=== PATIENT | male | born 1955 | race Caucasian/White ===

== ENCOUNTER 2020-03-08 16:20 | Emergency (ER) | payer OTHER ==
[2020-03-08 20:08] LABS: Absolute Lymphocytes (CBC) 1.1 K/uL (0.7-4.9); Basophils % 0.2 % (0-1.3); Lymphocytes % 9.4 % (15.3-44.8); MPV 7.9 fL (7.6-11.3); RBC Red Blood Cell Count 4.27 M/uL (4.33-5.43)
[2020-03-08] MEDS ORDERED: CLINDAMYCIN 900MG/D5W 900 MG/50 ML IVPB IV ONE (20:09)
[2020-03-08] MEDS ORDERED: MORPHINE 4 MG/ML SYR ONE (20:09)
[2020-03-08] MEDS ORDERED: NA CHLORIDE 0.9% 250 ML ONE (20:09)
[2020-03-08] MEDS ORDERED: ONDANSETRON 4 MG/2 ML VIAL ONE (20:09)
[2020-03-08 20:10] LABS: Protime INR 1.21
[2020-03-08 20:22] LABS: Albumin 3.5 g/dL (3.4-5.0); Bilirubin Direct 0.3 mg/dL (0-0.2); Bilirubin Total 1.3 mg/dL (0.2-1.0); Potassium 3.9 mmol/L (3.5-5.1); Protein, Total 8.6 g/dL (6.4-8.2)
--- NOTE | 2020-03-08 20:51 | EDPHYS ---
Physician Documentation [facility] Name: Marcio Moore Age: 64 yrs Sex: Male : 1955 Arrival Date: 03/08/2020 Time: 16:24 Bed 5 Private MD: ED Physician Golden Frey HPI: 03/08 20:09 This 64 yrs old Male presents to ER via Ambulatory with complaints of mh7 Infected Nerve Stimulator. 20:09 the patient presents with a swollen area of the left lower back. Description: mh7 erythematous, swollen, warm. Onset: The symptoms/episode began/occurred 1 week(s) ago. Possible cause(s): unknown. 20:10 Associated signs and symptoms: Pertinent positives: swelling, Pain, Pertinent mh7 negatives: discharge, drainage, foreign body sensation, fever, headache, nausea, shortness of breath, vomiting. Modifying factors: the symptoms are alleviated by nothing, the symptoms are aggravated by nothing. Severity of symptoms: At their worst the symptoms were moderate, earlier today, in the emergency department the symptoms are unchanged. Patient is from [place], [place]. He states that he had a neurostimulator placed 3 months ago in his left lower back area. He reports having pain, redness, and swelling to the area that started 1 week ago. He denies any fever, nausea, vomiting.. Historical: - Allergies: 16:53 No Known Allergies; ss - Home Meds: 20:36 htn and cholesterol medication cannot recall the names [Active]; rr5 20:36 Doxycycline Oral [Active]; Augmentin 875-125 mg Oral tab [Active]; rr5 - PMHx: 20:36 Hypertension; Hyperlipidemia; rr5 - PSHx: 20:36 back surgery; neck surgery; hip surgery; rr5 - Immunization history:: Adult Immunizations up to date. - Social history:: Smoking status: Patient denies any tobacco usage or history of. ROS: 20:10 Constitutional: Negative for fever, chills, and weight loss, Eyes: Negative for injury, mh7 pain, redness, and discharge, ENT: Negative for injury, pain, and discharge, Neck: Negative for injury, pain, and swelling, Cardiovascular: Negative for chest pain, palpitations, and edema, Respiratory: Negative for shortness of breath, cough, wheezing, and pleuritic chest pain, Abdomen/GI: Negative for abdominal pain, nausea, vomiting, diarrhea, and constipation, : Negative for injury, bleeding, discharge, and swelling, MS/Extremity: Negative for injury and deformity, Neuro: Negative for headache, weakness, numbness, tingling, and seizure, Psych: Negative for depression, anxiety, suicide ideation, homicidal ideation, and hallucinations, Allergy/Immunology: Negative for hives, rash, and allergies, Endocrine: Negative for neck swelling, polydipsia, polyuria, polyphagia, and marked weight changes, Hematologic/Lymphatic: Negative for swollen nodes, abnormal bleeding, and unusual bruising. Exam: 20:10 Constitutional: This is a well developed, well nourished patient who is awake, alert, mh7 and in no acute distress. Head/Face: Normocephalic, atraumatic. Eyes: Pupils equal round and reactive to light, extra-ocular motions intact. Lids and lashes normal. Conjunctiva and sclera are non-icteric and not injected. Cornea within normal limits. Periorbital areas with no swelling, redness, or edema. Neck: Trachea midline, no thyromegaly or masses palpated, and no cervical lymphadenopathy. Supple, full range of motion without nuchal rigidity, or vertebral point tenderness. No Meningismus. Chest/axilla: Normal chest wall appearance and motion. Nontender with no deformity. No lesions are appreciated. Cardiovascular: Regular rate and rhythm with a normal S1 and S2. No gallops, murmurs, or rubs. Normal PMI, no JVD. No pulse deficits. Respiratory: Lungs have equal breath sounds bilaterally, clear to auscultation and percussion. No rales, rhonchi or wheezes noted. No increased work of breathing, no retractions or nasal flaring. Abdomen/GI: Soft, non-tender, with normal bowel sounds. No distension or tympany. No guarding or rebound. No evidence of tenderness throughout. 03/09 03:25 MS/ Extremity: Pulses equal, no cyanosis. Neurovascular intact. Full, normal range mh7 of motion. Neuro: Awake and alert, GCS 15, oriented to person, place, time, and situation. Cranial nerves II-XII grossly intact. Motor strength 5/5 in all extremities. Sensory grossly intact. Cerebellar exam normal. Normal gait. Psych: Awake, alert, with orientation to person, place and time. Behavior, mood, and affect are within normal limits. Back: pain, that is moderate, of the left low back, ROM is normal, normal spinal alignment noted, CVA tenderness, is absent, vertebral tenderness, is not appreciated, muscle spasm, is not present, Surgical wound with erythema, tenderness, and swelling. Skin: cellulitis, that is moderate, on the left low back. Vital Signs: 03/08 16:49 BP 135 / 78; Pulse 92; Resp 16; Temp 99.6(O); Pulse Ox 95% on R/A; Weight 97.52 kg; ss Height 5 ft. 9 in. (175.26 cm); Pain 10/10; 20:52 BP 105 / 50; Pulse 75; Resp 19; Pulse Ox 99% ; Pain 5/10; rr5 22:01 BP 110 / 80; Pulse 70; Resp 16; Temp 99.5; Pulse Ox 99% ; rr5 16:49 Body Mass Index 31.75 (97.52 kg, 175.26 cm) ss MDM: 19:46 Patient medically screened. [facility] 20:49 Differential diagnosis: abscess, cellulitis, Infected neurostimulator hardware. Data [facility] reviewed: vital signs, nurses notes, lab test result(s), CBC, electrolytes. Data interpreted: Pulse oximetry: on room air is 95 %. Interpretation: normal. Counseling: I had a detailed discussion with the patient and/or guardian regarding: the historical points, exam findings, and any diagnostic results supporting the discharge/admit diagnosis, lab results, the need to transfer to another facility, for higher level of care, [facility] does not immediately have the required specialist. 03/09 06:52 Response to treatment: the patient's symptoms have markedly improved after treatment. [facility] ED course: Discussed with Neurology at [facility] in [facility] who accepted patient for transfer.. 03/08 19:57 Order name: CBC with Diff; Complete Time: 20:28 [facility] 03/08 19:57 Order name: Basic Metabolic Panel; Complete Time: 20:28 [facility] 03/08 19:57 Order name: Protime (+inr); Complete Time: 20:28 [facility] 03/08 19:57 Order name: Ptt, Activated; Complete Time: 20:28 [facility] 03/08 19:57 Order name: Lactate; Complete Time: 20:28 [facility] 03/08 19:57 Order name: LFT's; Complete Time: 20:28 [facility] 03/08 19:57 Order name: Blood Culture* [facility] 03/08 19:57 Order name: Urine Dipstick-Ancillary (obtain specimen); Complete Time: 21:57 [facility] 03/08 21:50 Order name: Urine Dipstick--Ancillary (enter results) ar5 Administered Medications: 03/08 20:00 Drug: Zofran (Ondansetron) 4 mg Route: IVP; Site: left hand; rr5 21:07 Follow up: Response: No adverse reaction rr5 20:02 Drug: morphine 4 mg {Note: rass 0.} Route: IVP; Site: left hand; rr5 21:07 Follow up: Response: No adverse reaction; Pain is decreased; RASS: Alert and Calm (0) rr5 20:12 Drug: Clindamycin 900 mg Route: IVPB; Infused Over: 30 mins; Site: left hand; rr5 20:50 Follow up: Response: No adverse reaction; IV Status: Completed infusion; IV Intake: [id number] Disposition: 03/09 06:52 Co-signature as Attending Physician, Golden Frey MD. mh7 Disposition: 03/08/20 20:[address] [facility]. Diagnosis is Surgical Wound Infection. - Reason for transfer: Higher level of care. - Accepting physician is Dr. Pacheco. - Condition is Stable. - Problem is new. - Symptoms are unchanged. Signatures: Dis[facility] Kylie Rojo RN RN Michael Valle RN RN rr5 Golden Frey MD MD mh7 Corrections: (The following items were deleted from the chart) 03/08 22:11 20:51 03/08/2020 20:[address] [facility]. rr5 Diagnosis is Surgical Wound Infection. Reason for transfer: Higher level of care. Accepting physician is Dr. Pacheco. Condition is Stable. Problem is new. Symptoms are unchanged. 7
--- NOTE | 2020-03-08 20:51 | ER ---
Nurse's Notes [facility] Name: Marcio Moore Age: 64 yrs Sex: Male : 1955 Arrival Date: 03/08/2020 Time: 16:24 Bed 5 Private MD: Diagnosis: Surgical Wound Infection Presentation: 03/08 16:49 Chief complaint: Patient states: "I got an infection in my back. I had a nerve ss stimulator put in 3 months ago. It was doing fine. All of a sudden it started hurting.". Coronavirus screen: Client denies travel out of the [place] in the last 14 days. Ebola Screen: Patient denies exposure to infectious person. Patient denies travel to an Ebola-affected area in the 21 days before illness onset. Initial Sepsis Screen:. Risk Assessment: Do you want to hurt yourself or someone else? Patient reports no desire to harm self or others. Onset of symptoms was March 04, 2020. 16:49 Method Of Arrival: Ambulatory ss 16:49 Acuity: CATHY 3 ss 19:20 Initial Sepsis Screen: Does the patient meet any 2 criteria? No. Patient's initial rr5 sepsis screen is negative. Does the patient have a suspected source of infection? Yes: Skin breakdown/wound. Historical: - Allergies: 16:53 No Known Allergies; ss - Home Meds: 20:36 htn and cholesterol medication cannot recall the names [Active]; rr5 20:36 Doxycycline Oral [Active]; Augmentin 875-125 mg Oral tab [Active]; rr5 - PMHx: 20:36 Hypertension; Hyperlipidemia; rr5 - PSHx: 20:36 back surgery; neck surgery; hip surgery; rr5 - Immunization history:: Adult Immunizations up to date. - Social history:: Smoking status: Patient denies any tobacco usage or history of. Screenin:51 Abuse screen: Denies threats or abuse. Denies injuries from another. Nutritional rr5 screening: No deficits noted. Tuberculosis screening: No symptoms or risk factors identified. Fall Risk IV access (20 points). Total Grey Fall Scale indicates No Risk (0-24 pts). Assessment: 19:20 General: Appears in no apparent distress. comfortable, Behavior is calm. rr5 19:20 Pain: Complains of pain in left mid back Pain radiates to back Pain currently is 10 out rr5 of 10 on a pain scale. Quality of pain is described as aching, Pain began gradually, Is intermittent. Neuro: Level of Consciousness is awake, alert, obeys commands, Oriented to person, place, time, situation. Cardiovascular: Capillary refill < 3 seconds Patient's skin is warm and dry. Respiratory: Airway is patent Respiratory effort is even, unlabored, Respiratory pattern is regular, symmetrical. GI: No signs and/or symptoms were reported involving the gastrointestinal system. : No signs and/or symptoms were reported regarding the genitourinary system. EENT: No signs and/or symptoms were reported regarding the EENT system. Derm: Abscess located on left mid back is quarter sized, is hot to touch, is red, is raised, infected nerve stimulator Reports pain that is 10 out of 10 on a pain scale. Musculoskeletal: Circulation, motion, and sensation intact. Capillary refill < 3 seconds. 20:51 Reassessment: Patient appears in no apparent distress at this time. Patient is alert, rr5 oriented x 3, equal unlabored respirations, skin warm/dry/pink. Patient states feeling better. Patient states symptoms have improved. 21:20 Reassessment: report given to toya CANCINO [facility] assigned room 15 tower bed [id number].rr5 22:10 Reassessment: Patient appears in no apparent distress at this time. Patient is alert, rr5 oriented x 3, equal unlabored respirations, skin warm/dry/pink. report given to [facility] ambulance awake alert not in distress, vitally stable. Patient states symptoms have improved. Vital Signs: 16:49 BP 135 / 78; Pulse 92; Resp 16; Temp 99.6(O); Pulse Ox 95% on R/A; Weight 97.52 kg; ss Height 5 ft. 9 in. (175.26 cm); Pain 10/10; 20:52 BP 105 / 50; Pulse 75; Resp 19; Pulse Ox 99% ; Pain 5/10; rr5 22:01 BP 110 / 80; Pulse 70; Resp 16; Temp 99.5; Pulse Ox 99% ; rr5 16:49 Body Mass Index 31.75 (97.52 kg, 175.26 cm) ED Course: 16:24 Patient arrived in ED. ds1 16:53 Triage completed. ss 16:53 Arm band placed on right wrist. ss 19:12 Michael Valle, RN is Primary Nurse. rr5 19:20 Patient has correct armband on for positive identification. Placed in gown. Bed in low rr5 position. Call light in reach. Side rails up X2. Pulse ox on. NIBP on. 19:30 Golden Frey MD is Attending Physician. mh7 19:50 Inserted saline lock: 20 gauge in left hand, using aseptic technique. Blood collected. rr5 19:50 First set of blood cultures drawn by me. rr5 20:[address] [facility] for Neuro sugery. Spoke with Erica Iraheta. ar5 20:25 Second set of blood cultures drawn by me. rr5 20:28 Dr. Frey spoke with Neurologist Dr. Herron, neuro accepted. ar5 20:[address] Dr[address] F[address] spoke with Dr. Pacheco hospitalist, she accepted pt. ar5 20:56 Acceptance given by Erica Iraheta. Accepting physician Dr. Pacheco hospitalist. Pt. ar5 going to [address] [place] [address] Rm. [id number]. Call report to [phone]. 21:00 [facility] will be here in 35-40 minutes to transfer pt. to [facility]. ar5 22:10 No provider procedures requiring assistance completed. Patient transferred, IV remains rr5 in place. intact, No redness/swelling at site. Administered Medications: 20:00 Drug: Zofran (Ondansetron) 4 mg Route: IVP; Site: left hand; rr5 21:07 Follow up: Response: No adverse reaction rr5 20:02 Drug: morphine 4 mg {Note: rass 0.} Route: IVP; Site: left hand; rr5 21:07 Follow up: Response: No adverse reaction; Pain is decreased; RASS: Alert and Calm (0) rr5 20:12 Drug: Clindamycin 900 mg Route: IVPB; Infused Over: 30 mins; Site: left hand; rr5 20:50 Follow up: Response: No adverse reaction; IV Status: Completed infusion; IV Intake: [id number] Intake: 20:50 IV: 50ml; Total: 50ml. rr5 Outcome: 20:51 ER care complete, transfer ordered by . mh7 22:10 Transferred by ground EMS to [facility], [facility], Transfer form completed. rr5 22:10 Condition: stable 22:10 Instructed on the need for transfer. 22:11 Patient left the ED. rr5 Signatures: Leon Eva ds1 Kylie Rojo, JULITA RN Michael Laguna RN RN rr5 Alessia Berrios ar5 Golden Frey MD MD 7 Corrections: (The following items were deleted from the chart) 21:46 20:[address] Dr[address] Frey spoke with Dr. Pacheco, she accepted pt. ar5 ar5 21:47 21:46 Acceptance given by Erica Iraheta. Accepting physician Dr. Junior carias hospitalist. Pt. going to [address] 1547 ar5 21:48 21:46 Acceptance given by Erica Iraheta. Accepting physician Dr. Junior carias hospitalist. Pt. going to [address] 1547 ar5
[2020-03-08 21:53] LABS: Urine Blood TRACE (NEG); Urine Glucose NEGATIVE (NEG); Urine Protein TRACE (NEG); Urine Specific Gravity 1.025 (1.005-1.030)
== END 2020-03-08 22:11 | disposition short-term general hospital (02) ==
LOC: ER 16:20
DX: T81.49XA Infection following a procedure, other surgical site, initial encounter (principal); I10 Essential (primary) hypertension; E78.5 Hyperlipidemia, unspecified
CPT/HCPCS: 96365; 87040 ×2; 85025; 80048; 36415; 87205; 85610; 80076; 83605; 85730; 81003; 96375; 99285; J7050; J2405